=== PATIENT | female | born 1930 | race Caucasian/White ===

== ENCOUNTER 2017-10-20 20:26 | Emergency (ER) | payer MEDICARE ==
--- NOTE | 2017-10-20 21:28 | ERPHSYRPT ---
- History of Present Illness Time Seen by Provider: 10/20/17 21:22 Source: patient, family Exam Limitations: no limitations Patient Subjective Stated Complaint: pt states she has not been feeling well and has had a cough for about 2 weeks. states she has a fever of 101 today at home and her bp at home was elevated. Triage Nursing Assessment: pt alert and oriented, asnwers questions approp. pt ambulatory with steady gait noted, respirations nonlboared with lungs cta. skin pink warm and dry. bilat upper ans lower ext strength wnl. pupils equal and reactive. Physician History: The patient is an 87-year-old female with her [id number] complaining of a cough for 2-3 weeks with intermittent fever. Today her temperature was 101 which is the highest it has been over the duration of this cough. Also this evening her blood pressure was up. She became concerned because of the elevated temperature and elevated blood pressure. She has not seen a doctor for this cough. She did receive her influenza vaccination this year. It does hurt when she coughs. She denies nausea, vomiting, or diarrhea. She has not seen her local physician during this period of coughing. Her past medical history is significant for hypertension and glaucoma. Timing/Duration: week(s) (3) Fever Severity: moderate Fever Therapy DRUM [employer]ER: none Associated Symptoms: cough Allergies/Adverse Reactions: No Known Drug Allergies Allergy (Verified 10/20/17 20:46) Home Medications: Aspirin 81 gm Chew [Baby Aspirin 81 mg Chew] 81 mg PO DAILY 02/25/13 [ History] Metoprolol Succinate 25 mg Xl* [Toprol-Xl 25MG Tablets] 25 mg PO HS 02/25/13 [History] Bimatoprost [Lumigan] 1 drop OP DAILY 10/20/17 [History] Timolol Maleate 0.25% Eye [Timolol 0.25% Opth Kaila 5 ML] 5 ml OP BID [History] Hx Tetanus, Diphtheria Vaccination/Date Given: Yes Hx Influenza Vaccination/Date Given: Yes (2016) Hx Pneumococcal Vaccination/Date Given: Yes Immunizations Up to Date: Yes - Review of Systems Constitutional: Fever Eyes: No Symptoms Ears, Nose, & Throat: No Symptoms Respiratory: Cough Cardiac: No Chest Pain, No Edema, No Syncope Abdominal/Gastrointestinal: No Abdominal Pain, No Nausea, No Vomiting, No Diarrhea Genitourinary Symptoms: No Dysuria Musculoskeletal: No Back Pain, No Neck Pain Skin: No Rash Neurological: No Dizziness, No Focal Weakness, No Sensory Changes Psychological: No Symptoms Endocrine: No Symptoms Hematologic/Lymphatic: No Symptoms Immunological/Allergic: No Symptoms All Other Systems: Reviewed and Negative - Past Medical History Pertinent Past Medical History: Yes Cardiac History: Hypertension Other Medical History: hx of sarcoidosis - Past Surgical History Past Surgical History: Yes Gastrointestinal: Appendectomy, Cholecystectomy Musculoskeletal: Orthopedic Surgery Female Surgical History: Section Other Surgical History: hip replacement, lumpectomy - Social History Smoking Status: Never smoker Exposure to second hand smoke: No Drug Use: none Patient Lives Alone: Yes - Nursing Vital Signs Nursing Vital Signs: Initial Vital Signs Temperature 98.4 F 10/20/17 20:39 Pulse Rate 111 H 10/20/17 20:39 Respiratory Rate 18 10/20/17 20:39 Blood Pressure 161/89 10/20/17 20:39 O2 Sat by Pulse Oximetry 95 10/20/17 20:39 Pain Scale Pain Intensity 0 - Physical Exam General Appearance: no apparent distress, alert Eye Exam: PERRL/EOMI ENT Exam: normal ENT inspection, No pharyngeal erythema, No tonsillar exudate Neck Exam: supple, full range of motion, No meningismus Respiratory Exam: normal breath sounds, lungs clear, no respiratory distress Cardiovascular/Chest Exam: normal heart sounds, regular rate/rhythm, No murmur, No edema Gastrointestinal/Abdominal Exam: soft, non tender, no distention Pelvic Exam: not done Rectal Exam: not done Extremity Exam: non-tender, normal range of motion, normal inspection, normal capillary refill Neurologic Exam: alert, oriented x 3, cooperative, hat block maker II-XII nml as tested, normal mood/affect, sensation nml, No motor deficits Skin Exam: normal color, warm, dry, No rash SpO2 Interpretation: normal SpO2: 95 Oxygen Delivery: Room Air - Radiology Exams Chest X-ray Interpretation: Interpreted by me, Negative, Other (No change in fibrotic changes from chronic interstitial lung disease, comp 2V CXR 12/21/12. No acute findings.) Ordered Tests: Active Orders 24 hr Category Date Time Status IV Insertion STAT Care 10/20/17 21:28 Active Pulse Oximetry (ED) STAT Care 10/20/17 21:27 Active CHEST 2 VIEWS (PA AND LAT) Stat Exams 10/20/17 21:27 Taken BMP Stat Lab 10/20/17 22:01 Completed CBC W DIFF Stat Lab 10/20/17 22:01 Completed Manual Differential NC Stat Lab 10/20/17 22:01 Completed NT PRO BNP Stat Lab 10/20/17 22:01 Completed Medication Summary Discontinued Medications Generic Name Dose Route Start Last Admin Trade Name Freq PRN Reason Stop Dose Admin Ceftriaxone Sodium/Dextrose 1 g in 50 mls @ 100 mls/hr 10/20/17 21:57 22:09 Rocephin 1 Gm-D5w 50 Ml Bag IV 10/20/17 22:26 100 mls/hr STAT STA Administration Ceftriaxone Sodium/Dextrose Confirm 10/20/17 22:07 Rocephin 1 Gm-D5w 50 Ml Bag Administered 10/20/17 22:08 Dose 1 g in 50 mls @ ud IV .STK-MED ONE Lab/Rad Data: Laboratory Result Diagrams 10/20/17 22:01 10/20/17 22:01 Laboratory Results 10/20/17 10/20/17 10/20/17 Range/Units 22:01 22:01 22:01 WBC 15.0 H (4.0-10.5) K/mm3 RBC 4.36 (4.1-5.4) M/mm3 Hgb 13.3 (12.0-16.0) gm/dl Hct 39.4 (35-47) % MCV 90.4 (78-100) fl MCH 30.5 (26-32) pg MCHC 33.8 (32-36) g/dl RDW 14.0 (11.5-14.0) % Plt Count 305 (150-450) K/mm3 MPV 10.2 H (6-9.5) fl Sodium 137 (137-145) mmol/L Potassium 4.0 (3.5-5.1) mmol/L Chloride 101 (98-107) mmol/L Carbon Dioxide 26 (22-30) mmol/L Anion Gap 13.5 (5-15) MEQ/L BUN 17 (7-17) mg/dL Creatinine 0.67 (0.52-1.04) mg/dL Estimated GFR > 60 ML/MIN Glucose 111 H (74-106) mg/dL Calcium 9.8 (8.4-10.2) mg/dL NT-Pro-B Natriuret Pep 314 (0-1800) pg/mL Influenza Type A Ag NEGATIVE (NEGATIVE) Influenza Type B Ag NEGATIVE (NEGATIVE) RSV (PCR) NEGATIVE (Negative) - Progress Progress: improved Counseled pt/family regarding: diagnosis, need for follow-up, rad results - Departure Time of Disposition: 23:04 Departure Disposition: Home Clinical Impression: Bronchitis Condition: Stable Critical Care Time: No Referrals: YISSEL AGUIAR [Primary Care Provider] - Additional Instructions: You have bronchitis. You were given Rocephin 1 g by IV in the ER. Continue treatment with azithromycin 2 tablets on day 1, followed by one tablet each day for the next 4 days. Take Tylenol and ibuprofen as needed for fever and pain. Follow-up with your doctor later this week. Prescriptions: Azithromycin 250 mg [Zithromax 250 MG TABLET] 250 mg PO ZPACK #6 tablet
[2017-10-20] MEDS ORDERED: ROCEPHIN 1 Gm-D5w 50 ml Bag** 1 G/50 ML IVPB IV STA (21:57)
[2017-10-20 22:05] LABS: Granulocyte Absolute (ANC) 11.44 (1.4-6.9); Hematocrit 39.4 % (35-47); Hemoglobin 13.3 gm/dl (12.0-16.0); Mean Cell Volume 90.4 fl (78-100); Mean Corpuscular Hemoglobin 30.5 pg (26-32); Mean Corpuscular Hgb Concent. 33.8 g/dl (32-36); Mean Platelet Volume 10.2 fl (6-9.5); Platelet Count 305 K/mm3 (150-450); Red Blood Count 4.36 M/mm3 (4.1-5.4)
[2017-10-20] MEDS ORDERED: ROCEPHIN 1 Gm-D5w 50 ml Bag** 1 G/50 ML IVPB IV ONE (22:07)
[2017-10-20 22:19] LABS: ANION GAP 13.5 MEQ/L (5-15); BLOOD UREA NITROGEN 17 mg/dL (7-17); CHLORIDE 101 mmol/L (98-107); Calcium 9.8 mg/dL (8.4-10.2); Carbon Dioxide 26 mmol/L (22-30); Creatinine 1 0.67 mg/dL (0.52-1.04); Glucose 111 mg/dL (74-106); SODIUM 137 mmol/L (137-145)
[2017-10-20 22:28] LABS: NT PRO BNP 314 pg/mL (0-1800)
[2017-10-20 22:41] LABS: INFLUENZA A NEGATIVE (NEGATIVE); INFLUENZA B NEGATIVE (NEGATIVE); RESPIRATORY SYNCTIAL VIRUS NEGATIVE (Negative)
[2017-10-20 23:20] VITALS: BP 132/78; PULSE 84; O2SAT 96
[2017-10-21 03:08] LABS: Eosinophil 1 % (0.00-3.0); Lymphocytes 9 % (24-44); Monocyte 8 % (0.0-12.0); Neutrophils 82 % (36.0-66.0); Total Cells Counted 100
[2017-10-21 03:09] LABS: Platelet Estimate NORMAL (NORMAL)
--- NOTE | 2017-10-21 08:44 | XRAY ---
Indication: Cough and fever. High blood pressure. Comparison: December 21, 2012. PA/lateral chest again demonstrates COPD, CIPD, scattered bilateral pleural parenchymal scarring/thickening, benign left upper lobe masslike opacity, and scattered calcified granulomas. Heart is not enlarged. Bony thorax intact again with mild osteopenia and degenerative changes. No new/acute findings. Impression: Stable nonacute chest with chronic features.
== END 2017-10-20 23:23 | disposition home or self-care (01) ==
LOC: ED 20:26
DX: J40 Bronchitis, not specified as acute or chronic (principal); I10 Essential (primary) hypertension; H40.9 Unspecified glaucoma; Z79.899 Other long term (current) drug therapy
CPT/HCPCS: 36000; 36415; 71046; 80048; 83880; 85025; 87631; 96365; 99284; J0696

== ENCOUNTER 2020-10-14 11:24 | Emergency (ER) | payer MEDICARE ==
[2020-10-14 11:36] VITALS: O2SAT 98
[2020-10-14] MEDS ORDERED: Sodium Chloride 0.9% 1000 ML 1,000 ML IV STA (11:42)
[2020-10-14] MEDS ORDERED: Sodium Chloride 0.9% 1000 ML 1,000 ML ONE (11:49)
--- NOTE | 2020-10-14 11:51 | ERPHSYRPT ---
- History of Present Illness Time Seen by Provider: 10/14/20 11:49 Source: patient Exam Limitations: no limitations Patient Subjective Stated Complaint: PT states "I am just not moving around as well as I normally do." Triage Nursing Assessment: Pt presented alert and oriented X 3, skin pwd Pt ambulates with a slow unsteady gait. PT needs assistance to ambulate. Pt in no pain, no apparent respiratory distress. pt has generalized weakness Physician History: Patient is 89-year-old female with history of hypertension recently started on Aricept for dementia and since that patient has not been feeling well. Patient was found very weak by her son who was visiting her so he brought her into the emergency room. Patient denies any fever chills nausea vomiting appetite loss. Timing/Duration: week(s) (one week) Severity: mild Associated Symptoms: denies symptoms Allergies/Adverse Reactions: No Known Drug Allergies Allergy (Verified 10/20/17 20:46) Home Medications: Cyanocobalamin (Vitamin B-12) [Vitamin B-12] 1,000 mcg PO PC 10/14/20 [History] Donepezil HCl [Aricept] 5 mg PO DAILY 10/14/20 [History] Hx Tetanus, Diphtheria Vaccination/Date Given: Yes Hx Influenza Vaccination/Date Given: Yes (2016) Hx Pneumococcal Vaccination/Date Given: Yes Immunizations Up to Date: Yes Travel Risk - International Travel Have you traveled outside of the country in past 3 weeks: No - Coronavirus Screening Are you exhibiting any of the following symptoms?: No Close contact with a COVID-19 positive Pt in past 14-21 Days: No - Review of Systems Constitutional: Weakness, No Fever, No Chills Eyes: No Symptoms Ears, Nose, & Throat: No Symptoms Respiratory: No Cough, No Dyspnea Cardiac: No Chest Pain, No Edema, No Syncope Abdominal/Gastrointestinal: No Abdominal Pain, No Nausea, No Vomiting, No Diarrhea Genitourinary Symptoms: No Dysuria Musculoskeletal: No Back Pain, No Neck Pain Skin: No Rash Neurological: No Dizziness, No Focal Weakness, No Sensory Changes Psychological: No Symptoms Endocrine: No Symptoms All Other Systems: Reviewed and Negative - Past Medical History Pertinent Past Medical History: Yes Cardiac History: Hypertension Other Medical History: hx of sarcoidosis - Past Surgical History Past Surgical History: Yes Gastrointestinal: Appendectomy, Cholecystectomy Musculoskeletal: Orthopedic Surgery Female Surgical History: Section Other Surgical History: hip replacement, lumpectomy - Social History Smoking Status: Never smoker Exposure to second hand smoke: No Drug Use: none Patient Lives Alone: Yes - Nursing Vital Signs Nursing Vital Signs: Initial Vital Signs Temperature 97.4 F 10/14/20 11:29 Pulse Rate 74 10/14/20 11:29 Respiratory Rate 20 10/14/20 11:29 Blood Pressure 200/98 10/14/20 11:29 O2 Sat by Pulse Oximetry 98 10/14/20 11:29 Pain Scale Pain Intensity 0 - Physical Exam General Appearance: no apparent distress, alert Eye Exam: PERRL/EOMI, eyes nml inspection Ears, Nose, Throat Exam: normal ENT inspection, TMs normal, pharynx normal, moist mucous membranes Neck Exam: normal inspection, non-tender, supple, full range of motion Respiratory Exam: normal breath sounds, lungs clear, No respiratory distress Cardiovascular Exam: regular rate/rhythm, normal heart sounds, normal peripheral pulses Gastrointestinal/Abdomen Exam: soft, normal bowel sounds, No tenderness, No mass Back Exam: normal inspection, normal range of motion, No CVA tenderness, No vertebral tenderness Extremity Exam: normal inspection, normal range of motion, pelvis stable Neurologic Exam: alert, oriented x 3, cooperative, normal mood/affect, nml cerebellar function, nml station & gait, sensation nml, No motor deficits Skin Exam: normal color, warm, dry, No rash Lymphatic Exam: No adenopathy SpO2: 98 - Course Nursing assessment & vital signs reviewed: Yes EKG Interpreted by Me: Sinus Rhythm - Radiology Exams Chest X-ray Interpretation: Reviewed by me, Negative Ordered Tests: Active Orders 24 hr Category Date Time Status EKG-ER Only STAT Care 10/14/20 11:42 Active CHEST 1 VIEW (PORTABLE) Stat Exams 10/14/20 11:43 Taken CBC W DIFF Stat Lab 10/14/20 12:00 Completed CMP Stat Lab 10/14/20 12:00 Completed PROCALCITONIN Stat Lab 10/14/20 12:00 Completed TROPONIN Stat Lab 10/14/20 12:00 Completed UA W/RFX UR CULTURE Stat Lab 10/14/20 11:48 Ordered Medication Summary Discontinued Medications Generic Name Dose Route Start Last Admin Trade Name Freq PRN Reason Stop Dose Admin Sodium Chloride 1,000 mls @ 999 mls/hr 10/14/20 11:42 10/14/20 11:50 Sodium Chloride 0.9% 1000 Ml IV 10/14/20 12:42 999 mls/hr .Q1H1M STA Administration Sodium Chloride Confirm 10/14/20 11:49 Sodium Chloride 0.9% 1000 Ml Administered 10/14/20 11:50 Dose 1,000 mls @ ud .ROUTE .K-MED ONE Lab/Rad Data: Laboratory Result Diagrams 10/14/20 12:00 10/14/20 12:00 Laboratory Results 10/14/20 10/14/20 10/14/20 Range/Units 12:00 12:00 12:00 WBC 6.1 (4.0-10.5) K/mm3 RBC 4.91 (4.1-5.4) M/mm3 Hgb 14.5 (12.0-16.0) gm/dl Hct 44.6 (35-47) % MCV 90.8 (78-100) fl MCH 29.5 (26-32) pg MCHC 32.5 (32-36) g/dl RDW 15.5 H (11.5-14.0) % Plt Count 229 (150-450) K/mm3 MPV 10.4 (7.5-11.0) fl Gran % 73.0 H (36.0-66.0) % Eos # (Auto) 0.12 (0-0.5) Absolute Lymphs (auto) 0.87 L (1.0-4.6) Absolute Monos (auto) 0.63 (0.0-1.3) Lymphocytes % 14.2 L (24.0-44.0) % Monocytes % 10.3 (0.0-12.0) % Eosinophils % 2.0 (0.00-5.0) % Basophils % 0.5 (0.0-0.4) % Absolute Granulocytes 4.49 (1.4-6.9) Basophils # 0.03 (0-0.4) Sodium 136 L (137-145) mmol/L Potassium 4.5 (3.5-5.1) mmol/L Chloride 102 (98-107) mmol/L Carbon Dioxide 28 (22-30) mmol/L Anion Gap 9.6 (5-15) MEQ/L BUN 13 (7-17) mg/dL Creatinine 0.64 (0.52-1.04) mg/dL Estimated GFR > 60.0 ML/MIN Glucose 110 H (74-106) mg/dL Calcium 10.1 (8.4-10.2) mg/dL Total Bilirubin 0.90 (0.2-1.3) mg/dL AST 38 H (14-36) U/L ALT 19 (0-35) U/L Alkaline Phosphatase 48 (38-126) U/L Troponin I < 0.012 (0.000-0.034) ng/mL Serum Total Protein 7.3 (6.3-8.2) g/dL Albumin 4.2 (3.5-5.0) g/dL Procalcitonin 0.054 (0.030-0.080) ng/mL - Progress Progress: improved Counseled pt/family regarding: lab results, diagnosis, need for follow-up, rad results - Departure Departure Disposition: Home Clinical Impression: Adverse reaction to drug Qualifiers: Encounter type: initial encounter Qualified Code(s): T50.905A - Adverse effect of unspecified drugs, medicaments and biological substances, initial encounter Condition: Stable Critical Care Time: No Referrals: VELASQUEZ GARCIA [Primary Care Provider] - Instructions: Adverse Drug Reactions, Adult (DC), Adverse Drug Reactions, Adult, Donepezil Additional Instructions: Discharge/Care Plan [email or web address] Panda was seen on 10/14/20 in the Emergency Room. The patient was counseled regarding Diagnosis,Lab results, Imaging studies, need for follow up and when to return to the Emergency Room. Prescriptions given: Discharge Note I have spoken with the patient and/or caregivers. I have explained the patient's condition, diagnosis and treatment plan based on the information available to me at this time. I have answered the patient's and/or caregiver's questions and addressed any concerns. The patient and/or caregivers have as good understanding of the patient's diagnosis, condition and treatment plan as can be expected at this point. The vital signs have been stable. The patient's condition is stable and appropriate for discharge from the emergency department. The patient will pursue further outpatient evaluation with the primary care physician or other designated or consulting physician as outlined in the discharge instructions. The patient and/or caregivers are agreeable to this plan of care and follow-up instructions have been explained in detail. The patient and/or caregivers have received these instruction. The patient/and or caregivers are aware that any significant change in condition or worsening of symptoms should prompt an immediate return to this or the closest emergency department or call 911. LILIAN COY was seen on 10/14/20 n the Emergency Room. At that time you were treated for an emergent condition, during your visit Laboratory, Radiology and/or other procedures may have been ordered. It is very important that you follow-up with your Primary Care Physician VELASQUEZ GARCIA within the next 24-48 hours to review your Emergency Room visit and the final results of testing that was ordered. Some test results such as Urine Cultures, Blood Cultures, and other cultures if ordered will not be finalized for 24-48 hours. If you do not have a Primary Care Provider please call the medical records department at [phone] ext [phone] to obtain a copy of your results or you may sign into our patient portal to obtain these results by visiting us @ [email or web address] and completing the following steps: 1. Click on the Patient Portal link 2. Click the Patient Self Enrollment Link to complete the enrollment form and entering your 3. Once the enrollment form is completed you will receive an email with a temporary ID and password at the email address you provided. 4. Next choose a user name and password. Your user name must be at least 4 tim cters long and your password must be at least 4 characters long. 5. Choose a security question from the list and provide your answer to the question. If you already have signed into the Health Portal you may access your Health Care Information 24/02 by the following steps: 1. Login to our website @ [email or web address] 2. Enter your original user name and password. FAQS The [facility] Health Portal is an online tool that contains your Lab Results, Radiology Reports, Visit History, Discharge Instructions and Health Summary Lab and Radiology Results will not be available for 72 hours on the portal. The Portal is a secure site, passwords are encryted and URLs are re-written so they cannot be copied and pasted. You and authorized family members are the only ones who can access your Portal. Also there is a timeout feature that protects your information if you leave the Portal page open. If you have technical difficulty please use the Contact Us link on the page this will allow you to submit any questions you have regarding the Portal or you may contact the Medical Record Department at [phone] ext [phone].
[2020-10-14 12:04] LABS: Absolute Neutrophil Ct (ANC) 4.49 (1.4-6.9); BASOPHIL % 0.5 % (0.0-0.4); Basophil (Absolute #) 0.03 (0-0.4); Eosinophil (Absolute #) 0.12 (0-0.5); Hematocrit 44.6 % (35-47); Hemoglobin 14.5 gm/dl (12.0-16.0); Lymphocyte (Absolute #) 0.87 (1.0-4.6); Lymphocytes % 14.2 % (24.0-44.0); Mean Cell Volume 90.8 fl (78-100); Mean Corpuscular Hemoglobin 29.5 pg (26-32); Mean Corpuscular Hgb Concent. 32.5 g/dl (32-36); Mean Platelet Volume 10.4 fl (7.5-11.0); Monocyte (Absolute #) 0.63 (0.0-1.3); Monocytes % 10.3 % (0.0-12.0); Platelet Count 229 K/mm3 (150-450); Red Blood Count 4.91 M/mm3 (4.1-5.4); Red Cell Distribution Width 15.5 % (11.5-14.0); White Blood Count 6.1 K/mm3 (4.0-10.5)
[2020-10-14 12:07] LABS: Appearance CLEAR (CLEAR); Bilirubin NEGATIVE (NEGATIVE); Blood MODERATE Ery/ul (0-5); Glucose NEGATIVE (NEGATIVE); Ketones TRACE (NEGATIVE); Leukocyte Esterase NEGATIVE (NEGATIVE); Mucus SLIGHT /HPF (NEGATIVE); Nitrite NEGATIVE (NEGATIVE); Protein,Urine Dip NEGATIVE (Negative); Specific Gravity 1.014 (1.005-1.025); Urobilinogen NEGATIVE mg/dL (0-1); WBC 0-2 /HPF (0-5)
[2020-10-14 12:39] LABS: ALBUMIN 4.2 g/dL (3.5-5.0); ALKALINE PHOSPHATASE 48 U/L (38-126); ANION GAP 9.6 MEQ/L (5-15); BLOOD UREA NITROGEN 13 mg/dL (7-17); CHLORIDE 102 mmol/L (98-107); Calcium 10.1 mg/dL (8.4-10.2); Carbon Dioxide 28 mmol/L (22-30); Creatinine 1 0.64 mg/dL (0.52-1.04); EST GLOMERULAR FILTRATION RATE > 60.0 ML/MIN; Glucose 110 mg/dL (74-106); Potassium 4.5 mmol/L (3.5-5.1); SGOT/AST 38 U/L (14-36); SGPT/ALT 19 U/L (0-35); SODIUM 136 mmol/L (137-145); TROPONIN < 0.012 ng/mL (0.000-0.034); Total Protein 7.3 g/dL (6.3-8.2)
[2020-10-14 13:06] VITALS: BP 150/82; PULSE 68
[2020-10-14 13:47] LABS: Bacteria NONE SEEN /HPF (NEGATIVE)
--- NOTE | 2020-10-14 20:08 | XRAY ---
Indication: Weakness. Comparison: October 20, 2017. Portable chest again hyperinflated with chronic lung markings, scattered fibrosis/scarring, and scattered calcified granulomas. Heart is not enlarged. Bony thorax intact again with osteopenia and degenerative changes. Impression: Continued nonacute chest with chronic features.
== END 2020-10-14 13:07 | disposition home or self-care (01) ==
LOC: ED 11:24
DX: T44.1X5A Adverse effect of other parasympathomimetics [cholinergics], initial encounter (principal); I10 Essential (primary) hypertension; F03.90 Unspecified dementia, unspecified severity, without behavioral disturbance, psychotic disturbance, mood disturbance, and anxiety; Z79.899 Other long term (current) drug therapy
CPT/HCPCS: 36000; 36415; 71045; 80053; 81001; 84145; 84484; 85025; 93005; 96360; 99284